=== PATIENT | male | born 1975 | race African-American/Black ===

== ENCOUNTER → 2018-09-07 | Outpatient (CLI) | payer OTHER ==
[~2018-09-07] MED LIST: PROHANCE 279.3MG/ML 15ML VIAL (A9576) As Ordered ONE; PROHANCE 279.3MG/ML 5ML VIAL (A9576) As Ordered ONE
--- NOTE | 2018-09-07 15:57 | REP ---
MRI PELVIS WITH AND WITHOUT CONTRAST: TECHNIQUE: Multiple sequences obtained in the axial, coronal, and sagittal planes prior to and following the intravenous administration of 18 mL ProHance. Prostate is not significantly enlarged. It measures 3.9 x 2.6 x 3.2 cm for a total volume of 19.8 mL. I do not see a definite focal mass lesion in the prostate. There are areas of hypointense signal on T2 which appear to indicate prostatitis. Seminal vesicles are symmetrical in appearance. No pelvic mass is seen. There is no adenopathy or free fluid in the pelvis. Musculature along the pelvic floor and perineum demonstrates no abnormal signal. There is mild subchondral marrow edema along the pubic symphysis. This could indicate osteitis pubis. No other abnormality is seen of the visualized pelvic osseous structures. IMPRESSION: Prostate is not enlarged. There are findings suggesting possible prostatitis. There is subchondral marrow edema and enhancement along the pubic symphysis bilaterally which may indicate osteitis pubis. Electronically Signed by Reggie Osorio MD 09/07/2018 04:56 P
== END ==
LOC: M RAD 11:58
PROVIDERS: ATTEND General Practice
DX: R10.2 Pelvic and perineal pain (principal)
CPT/HCPCS: 72197; A9576